=== PATIENT | male | born 1990 | race Caucasian/White ===

== ENCOUNTER 2019-06-08 15:12 | Emergency (ER) | payer OTHER, SELFPAY ==
[2019-06-08 15:15] VITALS: BP 160/94; PULSE 92; RESP 16; TEMP 36.3; O2SAT 99
--- NOTE | 2019-06-08 15:50 | ED.GENADULT ---
HPI - General Adult General Chief complaint: Upper Respiratory Infection Stated complaint: difficulty swallowing History of Present Illness HPI narrative: Patient is a 28-year-old male who presents to the urgent care via POV for evaluation of a throat problem that began last night. Additionally he reports experiencing a one-time constricted feeling in posterior pharynx. He also reports intermittent periods of shortness of breath last night as well. Symptoms have since resolved after lasting 3 seconds last night . He does report feeling mid chest pain that radiates to right chest for approximately 1 week. He states he has a history of GERD and that those symptoms are identical to GERD symptoms. He also had a [id number] feeling to left hand and wrist last night. Patient reports being encouraged by father to be medically evaluated prompting today's visit. He states, he thinks his problems are my problems . He takes Sirisha-Mchenry for GERD symptoms. Sirisha-Mchenry improves symptoms. He states swallowing more often and talking fast worsens throat problem. Sitting up improves throat problems. Certain foods worsen GERD symptoms. Denies fever, chills, sweats, change in appetite, poor p.o. intake, sinus problems, abdominal pain, nausea, vomiting, diarrhea, weakness, skin color changes, myalgias, drooling, voice changes, cough, wheezing, hemoptysis, cyanosis, sore throat, nasal congestion, rhinorrhea, headaches, LOC, dizziness, ear pain, GUO, and heart palpitations. Related Data Home Medications Medication Instructions Recorded Confirmed No Home Medications 06/08/19 06/08/19 Allergies Allergy/AdvReac Type Severity Reaction Status Date / Time No Known Allergies Allergy Unknown Verified 12/30/18 16:54 Review of Systems Review of Systems: Narrative: All other systems reviewed and are negative PMFSH Comments I have reviewed and agree with the patient's past medical, surgical, social, and family hx as documented by the RN. There is no relevant family history pertinent to the presenting complaint. Exam Narrative: Exam Narrative: GENERAL: Well-appearing, well-nourished, and in no acute distress. HEAD: Normocephalic, atraumatic. No sinus tenderness or facial swelling appreciated. EYES: PERRLA and EOMI. No evidence of erythema, swelling, or drainage. ENT: Bilateral external ears and ear canals normal. Bilateral TMs are normal.No TM perforation. Nares clear, no rhinorrhea or epistaxis. Bilateral turbinates without erythema/ swelling. Mucous membranes moist and pink. Uvula is midline without erythema and swelling. No evidence of petechial rash, cobblestoning, lesions, ulcers, erythema, swelling, exudates, peritonsillar abscess, tenting, or drooling. Breath odor and voice normal. NECK: Supple. No Lymphadenopathy or nuchal rigidity appreciated. CHEST: Bilateral lung ellington are clear to auscultation. No respiratory distress. No evidence of cough or pleuritic cp upon examination. HEART: Regular rate and rhythm. No murmur, gallop, or rub heard. EXTREMITIES: Normal range of motion. No edema. SKIN: Warm, dry, no rash. NEURO: No focal deficits. Alert and oriented x3. Psych: Rapid speech, psychomotor agitation, flight of ideas, difficulty maintaining attention. Special observations: Patient appears anxious. Complaints inconsistent with exam findings. Course Vital Signs Vital signs: Vital Signs Temperature 97.4 F L 06/08/19 15:15 Pulse Rate 92 06/08/19 15:15 Respiratory Rate 16 06/08/19 15:15 Blood Pressure 160/94 H 06/08/19 15:15 Pulse Oximetry 99 06/08/19 15:15 Temperature 97.4 F L 06/08/19 15:15 Pulse Rate 92 06/08/19 15:15 Respiratory Rate 16 06/08/19 15:15 Blood Pressure 160/94 H 06/08/19 15:15 Pulse Oximetry 99 06/08/19 15:15 Medical Decision Making Differential Diagnosis Differential Diagnosis: Allergic rhinitis, ABRS, acute viral sinusitis, strep pharyngitis, nasopharyngitis,
== END 2019-06-08 16:08 | disposition home or self-care (01) ==
PROVIDERS: Emergency Provider Nurse Practitioner Family
DX: Z71.1 Person with feared health complaint in whom no diagnosis is made (principal)
CPT/HCPCS: 99211; G0463

== ENCOUNTER 2019-10-19 15:01 | Emergency (ER) | payer OTHER, SELFPAY ==
[2019-10-19 15:47] VITALS: BP 147/96; PULSE 97; RESP 16; TEMP 36.7; O2SAT 100
--- NOTE | 2019-10-19 16:40 | PC.NURSE ---
Pt up to intake desk, states that he feels much better and back to normal . Apologized for patient wait; pt understanding. States if he feels worse will return.
== END 2019-10-19 16:40 | disposition left against medical advice (07) ==
LOC: ANHED 15:58
PROVIDERS: PCP Family Medicine
DX: R00.0 Tachycardia, unspecified (principal)
CPT/HCPCS: 99199

== ENCOUNTER 2020-10-21 10:04 | Emergency (ER) | payer OTHER, SELFPAY ==
--- NOTE | ~2020-10-21 | CT_ITS ---
EXAMINATION: CT abdomen pelvis wo con DATE: 10/21/2020 12:14 INDICATION: Right flank pain TECHNIQUE: Computed tomography (CT) of the abdomen and pelvis was performed without intravenous contr ast. The dose-length product (DLP) was 235.16 mGy-cm. Automated exposure control and iterative recons truction technique were employed. COMPARISON: 10/09/2014 FINDINGS: Minimal dependent atelectasis is present in the lung bases. The heart size is normal. There is minimal bilateral gynecomastia. There is elevation of the right hemidiaphragm. The liver, spleen, pancreas, gallbladder, and adrenal glands are normal. There is a 3 mm stone in the right mid ureter which causes mild hydroureteronephrosis. There are punctate nonobstructing right kidney stones. The l eft kidney is unremarkable. No pathologically enlarged abdominal or pelvic lymph nodes are identified . The appendix is normal. There is no free intraperitoneal gas or evidence of bowel obstruction. IMPRESSION: 1. 3 mm right mid ureteral stone with mild right hydroureteronephrosis. 2. Punctate nonobstructing right nephrolithiasis. Reviewed, dictated and finalized at location A.
[2020-10-21 10:14] VITALS: BP 143/105; PULSE 70; RESP 20; TEMP 36.8; O2SAT 100
[2020-10-21 10:33] LABS: Basophils Percent Auto 0.6 % (0.2-1.2); Eosinophils Absolute Auto 0.1 K/mm3 (0-0.3); Eosinophils Percent Auto 1.2 % (0-4.4); Hematocrit 42.8 % (42.0-52.0); Hemoglobin 14.2 g/dL (14.0-18.0); Immature Granulocyte Absolute 0.03 K/mm3 (0.00-0.031); Immature Granulocyte Percent A 0.4 % (0-0.5); Lymphocytes Absolute Auto 2.24 K/mm3 (0.9-3.2); Lymphocytes Percent Auto 32.9 % (18.3-44.2); Mean Corpuscular HGB Conc 33.2 g/dl (32-36); Mean Corpuscular Hemoglobin 29.2 pg (26-34); Mean Corpuscular Volume 88.1 fl (80-100); Mean Platelet Volume 10.3 fl (7.4-10.4); Monocytes Absolute Auto 0.7 K/mm3 (0.1-0.6); Monocytes Percent Auto 9.6 % (2.6-8.5); Neutrophils Absolute Auto 3.8 K/mm3 (1.3-6.7); Neutrophils Percent Auto 55.3 % (45.5-73.1); Platelet Count Result 194 k/mm3 (150-375); Red Blood Count 4.86 M/mm3 (4.6-6.20); Red Cell Distribution Width 12.4 % (11.5-14.5); White Blood Count 6.8 K/mm3 (4.5-10.0)
[2020-10-21 10:43] LABS: Add Urine Microscopic? YES; Appearance Urine Cloudy (Clear); Bilirubin Urine Negative (Negative); Blood Urine 3+ (Negative); Glucose Urine UA Negative (Negative); Ketones Urine Negative (Negative); Leukocyte Esterase Ur Negative LEU/UL (Negative); Nitrate Urine Negative (Negative); Protein Urine 2+ mg/dL (Negative); RBC Urine >75 /hpf (0-2); Specific Grav Ur 1.028 (1.001-1.035); Urobilinogen Urine Negative mg/dL (<2.0)
[2020-10-21 10:46] LABS: Anion Gap 7 mmol/L (8-16); Blood Urea Nitrogen 16 mg/dL (9-20); Calcium 9.2 mg/dL (8.4-10.2); Carbon Dioxide 28 mmol/L (22-30); Chloride 104 mmol/L (98-107); Estimated CRCL calculation 121 ml/min; Estimated Glomerular Filt Rate > 60; Glucose 104 mg/dL (65-110); Potassium 3.6 mmol/L (3.4-5.0); Sodium 139 mmol/L (137-145)
[2020-10-21 10:49] LABS: Color Urine Light Red (Yellow)
--- NOTE | 2020-10-21 11:36 | ED.GENADULT ---
HPI - General Adult General Chief complaint: Abdominal Pain Stated complaint: right flank pain Time Seen by Provider: 10/21/20 10:25 Source: patient Mode of arrival: ambulatory Limitations: no limitations History of Present Illness HPI narrative: Patient presents for evaluation of abdominal pain. Symptom onset 0830 this morning. He states he initially thought pain was 2/2 position in which he was sleeping. However, symptoms persisted after changing positions. He states pain is primarily in right upper quadrant and right flank. Pain has been intermittent, sharp, 10/10 in severity. He also has a dull aching pain radiating into RLQ. He has a hx of kidney stones and has required lithotripsy in the past. Otherwise, no hx abdominal surgeries. Denies fever or chills. He did have some hematuria earlier and also noted what appeared to be skin cells in his urine. He does not consume ETOH. No additional complaints or concerns. Related Data Home Medications Medication Instructions Recorded Confirmed No Home Medications 06/08/19 10/21/20 Allergies Allergy/AdvReac Type Severity Reaction Status Date / Time No Known Allergies Allergy Unknown Verified 10/21/20 10:17 Review of Systems Review of Systems: CONSTITUTIONAL: Denies fever, chills, or sweats. EYES: Denies visual changes, redness, or discharge. ENT: Denies rhinorrhea, congestion, sore throat, or otalgia. CARDIOVASCULAR: Denies chest pain, palpitations, or edema. RESPIRATORY: Denies cough or dyspnea. GASTROINTESTINAL: Reports abdominal/flank pain, nausea and vomiting GENITOURINARY: Reports hematuria with sediment in urine SKIN: Denies rash or itching. MUSCULOSKELETAL: Denies back pain, joint pain, or myalgia. NEUROLOGIC: Denies headache, numbness, dizziness, or weakness. PSYCHIATRIC: Denies anxiety or depression. [facility] Past Medical History Medical History (Updated 10/21/20 @ 13:07 by KWESI Charlton, CHRISTIANA) Kidney stone Surgical History Surgical History H/O lithotripsy Family History Family History Father Hyperlipidemia Kidney stone Social History Social History Smoking status: Never smoker Alcohol intake: never Substance use: never Living arrangements: with family Gender identity (if verbalized by the patient): Male Spiritual care concerns: No Exam Narrative: GENERAL: Well-appearing, well-nourished, and in no acute distress. HEAD: Normocephalic, atraumatic. EYES: PERRLA and EOMI. ENT: Nares clear, no rhinorrhea or epistaxis. Mucous membranes moist. Oropharynx without tonsillar hypertrophy exudate or other lesions. Bilateral TMs pearly rueda nonbulging NECK: Supple. No adenopathy or masses. No carotid bruits or JVD CHEST: Clear to auscultation. No respiratory distress. No wheezes rales or rhonchi HEART: Regular rate and rhythm. No murmur heard. Normal peripheral pulses. ABDOMEN: Soft, nondistended, normal active bowel sounds. No abdominal tenderness or CVA tenderness EXTREMITIES: Normal range of motion. No edema. SKIN: Warm, dry, no rash. NEURO: No focal deficits. Alert and oriented x3. PSYCH: Normal mood and affect. Course Course Emergency Course: This is a 30-year-old male who presented with complaints of right-sided abdominal pain and flank pain. Labs were fairly unremarkable. CT showed 3 mm stone in the right ureter. Patient declined analgesics in the emergency department. Will discharge home with Flomax, [place], Zofran. NSAIDs may assist with renal colic. Advise follow-up outpatient with urology and return for worsening symptoms. Patient agreement with plan of care. Vital Signs Vital signs: Vital Signs Temperature 36.8 C 10/21/20 10:14 Pulse Rate 70 10/21/20 10:14 Respiratory Rate 20 10/21/20 10:14 Blood Pressure 143/105 H
[2020-10-21 12:20] LABS: Alanine Aminotransferase 22 U/L (4-50); Albumin Level 4.4 g/dL (3.5-5.1); Alkaline Phosphatase 73 U/L (38-126); Aspartate Amino Transferase 26 U/L (17-59); Bilirubin,Total 1.3 mg/dL (0.2-1.3); Lipase 100 U/L (23-300)
[2020-10-21 13:29] VITALS: BP 138/88; PULSE 70; RESP 20; O2SAT 100
== END 2020-10-21 13:31 | disposition home or self-care (01) ==
PROVIDERS: Emergency Medicine; Emergency Provider Nurse Practitioner; PCP Family Medicine
DX: N13.2 Hydronephrosis with renal and ureteral calculous obstruction (principal); Z87.442 Personal history of urinary calculi
CPT/HCPCS: 36415; 74176; 80048; 80076; 81001; 83690; 85025; 87086; 99284